=== PATIENT | female | born 1995 | race African-American/Black ===

== ENCOUNTER 2023-01-02 22:23 | Emergency (ER) | payer MEDICAID ==
[~2023-01-02] VITALS: Ht 175.3 cm; Wt 71.7 kg
[2023-01-02 22:40] VITALS: BP 126/85; PULSE 85; RESP 17; TEMP 97.7; O2SAT 99
== END 2023-01-02 23:08 | disposition left against medical advice (07) ==
LOC: MED 22:23 → EDBD 22:23 → MED 23:08
DX: S61.215A Laceration without foreign body of left ring finger without damage to nail, initial encounter (principal); Z53.21 Procedure and treatment not carried out due to patient leaving prior to being seen by health care provider; W45.8XXA Other foreign body or object entering through skin, initial encounter; Y93.G3 Activity, cooking and baking; Y92.89 Other specified places as the place of occurrence of the external cause; Y99.8 Other external cause status
CPT/HCPCS: 99281

== ENCOUNTER 2023-01-03 07:41 | Emergency (ER) | payer MEDICAID ==
[~2023-01-03] VITALS: Ht 172.7 cm; Wt 65.8 kg
[2023-01-03 08:07] VITALS: BP 108/87; PULSE 93; RESP 16; TEMP 97.4; O2SAT 88
[2023-01-03] MEDS ORDERED: LIDOCAINE MPF 2% 100 MG/5 ML VIAL INJ ONE (08:45)
--- NOTE | 2023-01-03 08:50 | NUR ---
PATIENT AMBULATED TO ED BED 01
--- NOTE | 2023-01-03 08:53 | NUR ---
WOUND TO L 4TH DIGIT IRRIGATED.
[2023-01-03] MEDS ORDERED: LIDOCAINE 2% 1000 MG/50 ML VIAL INJ ONE (08:55)
[2023-01-03] MEDS ORDERED: LIDOCAINE 2% 100 MG/5 ML SYR IVP ONE (08:56)
[2023-01-03] MEDS ORDERED: LIDOCAINE/EPI 2% 1:100000 20 ML VIAL INJ ONE (08:58)
[2023-01-03] MEDS ORDERED: BACITRACIN OP OINT 500 UNITS/GM 3.5 GM TUBE OP SCH (09:35)
--- NOTE | 2023-01-03 09:36 | NUR ---
WOUND TO L 4TH ANTERIOR DIGIT DRESSED WITH NON ADHERENT AND FROG SPLINT APPLIED.
[2023-01-03] MEDS ORDERED: BACITRACIN OINT 500 UNITS/GM PKT TP ONE (09:41)
[2023-01-03 09:48] VITALS: BP 109/79; PULSE 74; RESP 17; O2SAT 99
--- NOTE | 2023-01-03 09:48 | NUR ---
Patient discharged with v/s stable. Written and verbal after care instructions given and explained. Patient verbalized understanding. Ambulatory with steady gait. All questions addressed prior to discharge. Advised to follow up with PMD.
== END 2023-01-03 09:48 | disposition home or self-care (01) ==
LOC: MED 07:41
DX: S61.215A Laceration without foreign body of left ring finger without damage to nail, initial encounter (principal); W26.0XXA Contact with knife, initial encounter; Y93.89 Activity, other specified; Y92.89 Other specified places as the place of occurrence of the external cause; Y99.8 Other external cause status
CPT/HCPCS: 12001; 90471; 90715; 99283; J2001

== ENCOUNTER 2023-05-01 11:59 | Emergency (ER) | payer MEDICAID ==
[~2023-05-01] VITALS: Ht 177.8 cm; Wt 72.6 kg
[2023-05-01 12:39] VITALS: BP 115/86; PULSE 72; RESP 18; TEMP 98; O2SAT 98
[2023-05-01] MEDS ORDERED: FLUORESCEIN OPTH STRIP 1 MG OP ONE (13:40)
[2023-05-01] MEDS ORDERED: TETRACAINE HCL/PF 0.5% OPTH 4 ML BTL OP ONE (13:40)
[2023-05-01] MEDS ORDERED: CILOS OP (13:49)
[2023-05-01] MEDS ORDERED: IBUP-2213 PO (13:49)
== END 2023-05-01 14:04 | disposition home or self-care (01) ==
LOC: MED 11:59
DX: S05.02XA Injury of conjunctiva and corneal abrasion without foreign body, left eye, initial encounter (principal); Z79.1 Long term (current) use of non-steroidal anti-inflammatories (NSAID); Z79.2 Long term (current) use of antibiotics; W22.8XXA Striking against or struck by other objects, initial encounter; Y92.89 Other specified places as the place of occurrence of the external cause; Y93.89 Activity, other specified; Y99.8 Other external cause status
CPT/HCPCS: 99283